=== PATIENT | male | born 1955 | race African-American/Black ===

== ENCOUNTER 2016-09-13 20:24 | Inpatient (IN) | payer BC, OTHER ==
--- NOTE | ~2016-09-13 | HP ---
History And Physical [id number] [place]. [address] NAME: SHANE BANERJEE : 53 STATUS : ADM IN [facility]#: [id number] AGE: 61 ADM/REG DATE : 09/14/16 MR#: [id number] REPORT SERV DATE: 09/14/16 DICTATED BY: NAA KUNZ DATE: 09/14/16 REPORT STATUS : Draft TRANSCRIBED BY: MODL DATE: 09/14/16 DATE OF ADMISSION: 09/14/2016 CHIEF COMPLAINT: Weakness. HISTORY OF PRESENT ILLNESS: The patient is a very pleasant, 61-year-old male with past history of colon cancer with liver and bone mets followed by Dr. Blake who presents after having decreased p.o. intake for multiple days, generalized weakness, and five episodes of falling and passing out episodes. The patient on arrival was noted to be hypotensive in the emergency room which caused dizziness episodes during or prior to the syncope episodes. The patient is caregiver for his but notes that he does feel different than usual. Symptoms are generalized weakness that are constant moderate to severe but no pain or radiating symptoms. No nausea or vomiting. No fever, diarrhea, chills, shortness of breath but the patient does have dizziness, weakness, decreased p.o. intake as the patient has lost taste for food. Symptoms are worsened with activity. No relieving symptoms appreciated. Symptoms are better particularly after getting IV fluids in emergency room. REVIEW OF SYSTEMS: CONSTITUTIONAL: Noted for multiple falls with dizziness and weakness. EYES: No visual changes or pain. ENT: No congestion or sore throat. NEURO: No headache or confusion but did have syncope. SKIN: No rashes or bruising. RESPIRATORY: No shortness of breath or cough. CV: No chest pain or palpitations. GI: No nausea or vomiting. : No dysuria or hematuria. MUSCULOSKELETAL: No myalgias or arthralgias. ENDOCRINE: No fatigue. HEME: No bleeding or bruising. IMMUNOLOGIC: No rhinorrhea. PSYCH: No anxiety or confusion. PAST MEDICAL HISTORY: Past medical history of hypertension, head injury with resultant seizures many years ago, reflux, colon cancer with subsequent metastasis to liver and bone under the care of Dr. Blake. SURGERIES: Venous access port and knee surgeries. SOCIAL HISTORY: Quit smoking in 2016. No current alcohol, no illicits. Lives with . ALLERGIES: NO KNOWN DRUG ALLERGIES. HOME MEDICATIONS: Flexeril, Voltaren, Nocatee, Keppra, lisinopril, HCTZ, omeprazole, Maxalt, Flomax, and chemotherapy. History And Physical [address] [address] NAME: SHANE BANERJEE : 53 STATUS : ADM IN [facility]#: [id number] AGE: 61 ADM/REG DATE : 09/14/16 MR#: [id number] REPORT SERV DATE: 09/14/16 DICTATED BY: NAA KUNZ DATE: 09/14/16 REPORT STATUS : Draft TRANSCRIBED BY: DIMITRI DATE: 09/14/16 PHYSICAL EXAMINATION: VITAL SIGNS: Blood pressure 89/68, repeated to 109/50, temperature 97.9, pulse 91, respirations 20, O2 saturations 91% on room air. GENERAL: Elderly than stated age. Slightly frail with temporal wasting but no acute distress. EYES: No scleral icterus. EOMI. ENT: Nares patent. Dry mucous membranes. RESPIRATORY: Clear to auscultation. No wheezes. CV: Regular rate. No rubs. Hypotensive. CHEST: Left-sided port. GI: Soft, nontender. : Deferred. MUSCULOSKELETAL: Does have mild muscle atrophy but moves all extremities x4. SKIN: Warm, dry. No tenting. LYMPH: No cervical or supraclavicular lymphadenopathy grossly. NEURO: Alert and oriented. Moves all extremities. PSYCH: Appropriate mood and affect, pleasant. DATA: Pelvis; unremarkable hip and pelvis no acute fracture. CT cervical; marked bullous changes bilateral lung apices, otherwise unremarkable CT cervical spine. No acute fracture or malalignment. Face without contrast, unremarkable CT facial bones, no acute facial bone fracture. Mild congenital leftward nasal septal deviation. Brain without contrast, moderate diffuse cerebral involutional changes. Otherwise unremarkable. CT head; no acute pathology. LABS: Sodium 132, potassium 5.2, chloride 98, carbon dioxide 21, BUN creatinine 82 and 2.55, glucose 84, calcium 8.8, magnesium 2.4, troponin negative. Chest pain profile; WBC 5.3, H and H 15.3 and 44.5, platelets 140, and INR 1.2. ASSESSMENT AND PLAN: 1. Syncope with hypotension. 2. Acute kidney injury. 3. Metastatic colon cancer. 4. Hypertension. 5. Seizure history. 6. Reflux. PLAN: 1. For syncope with current hypotension, responded to IV fluids. Discontinue blood History And Physical [address] [place]. [address] NAME: SHANE BANERJEE : 53 STATUS : ADM IN PAT#: [id number] AGE: 61 ADM/REG DATE : 09/14/16 MR#: [id number] REPORT SERV DATE: 09/14/16 DICTATED BY: NAA KUNZ DATE: 09/14/16 REPORT STATUS : Draft TRANSCRIBED BY: DIMITRI DATE: 09/14/16 pressure medications, is clinically volume depleted with decreased p.o. intake recently on chemo. IV hydration has provided response after first one liter. Monitor clinically. 2. JUSTEN. Stop NSAIDs, stop RADHA inhibitor HCTZ combination and as the patient is volume depleted secondary to recent chemo, we will check urine lytes, IV fluids. He has had urination x1 in the emergency room. We will monitor BMP, however, if the patient's I's and O's show decrease, may require Nephrology consult. 3. Metastatic colon cancer. CT scan has been completed on chemotherapy per Dr. Blake. We will notify of admission. 4. Hypertension, currently hypotensive. Stop HCTZ/RADHA inhibitor as possible additional nephrotoxins. 5. Seizure history, on medications, last seizure 1 year ago, on seizure precautions. 6. Reflux, PPI. We will monitor as an observation at this time until noted response to current treatment. DDN/MODL Naa Kunz MD / [id number] CC: MD Igor Uriarte M.D.
--- NOTE | ~2016-09-13 | DS ---
Discharge Summary [facility] [address] [place]. [address] NAME: SHANE BANERJEE : 53 STATUS : DIS IN PAT#: [id number] AGE: 61 ADM/REG DATE : 09/14/16 MR#: [id number] REPORT SERV DATE: 09/20/16 DICTATED BY: ADORE VILLALPANDO DATE: 09/19/16 REPORT STATUS : Draft TRANSCRIBED BY: MODL DATE: 09/19/16 ADMISSION DATE: 09/14/2016 DISCHARGE DATE: 09/19/2016 DISCHARGE DIAGNOSES: 1. Acute kidney injury, resolved. 2. Dehydration, resolved. 3. Diarrhea, improving, chemo induced. 4. Generalized weakness. 5. Metastatic colon cancer, treatment on hold at this time. 6. Hypokalemia, replaced. IMAGIN. CT of the brain, 09/13/2016 impression: Moderate diffuse cerebral changes. Otherwise unremarkable noncontrast CT. No acute intracranial pathology. 2. Chest x-ray, 09/13/2016 impression: Lungs clear suggesting underlying emphysematous changes. 3. CT face 09/13/2016 impression: Unremarkable CT of facial bones. No acute facial bone fracture. 4. CT of pelvis 09/13/2016 impression: Unremarkable CT of the hips and pelvis. No acute fracture. 5. CT of cervical, 09/13/2016 impression: Marked bullous changes bilateral lung aspects. Otherwise unremarkable CT cervical spine. No acute fracture or malalignment. COURSE OF HOSPITAL STAY: Please refer to history and physical dictated by Dr. Filemon Swann on 09/14/2016 for complete admission details. This patient is a 61-year-old male who presented to [facility] Emergency Room with complaints of increased weakness. He does present with a history of colon cancer with liver and bone metastasis followed by Dr. Blake of [facility]. The patient did present with complaints of increased generalized weakness and did state that he had decreased oral intake due to no appetite. The patient was admitted to the hospital for further treatment and evaluation. 1. Acute kidney injury. The patient was noted with a BUN and creatinine of 82 and 2.55 upon admission. IV hydration was provided. NSAIDs and RADHA inhibitor were held, p.o. intake was encouraged. At this time, BUN is 17, creatinine is 1.03, this has resolved. We will continue to encourage patient to take fluids in. The patient does state understanding. 2. Dehydration as noted above with lab work. The patient was encouraged to increase his p.o. intake. IV hydration was provided. Nutrition consult was also obtained during the patient's hospital stay. 3. Diarrhea. The patient did have complaints of loose watery stool. Stool studies were negative. The patient then was provided Imodium, and the diarrhea is believed to be chemo induced. 4. Generalized weakness. The patient did have complaints of generalized weakness following chemotherapy and unable to walk stating he was falling at home. PT Discharge Summary [address] [place]. [address] NAME: SHANE BANERJEE : 53 STATUS : DIS IN PAT#: [id number] AGE: 61 ADM/REG DATE : 09/14/16 MR#: [id number] REPORT SERV DATE: 09/20/16 DICTATED BY: ADORE VILLALPANDO DATE: 09/19/16 REPORT STATUS : Draft TRANSCRIBED BY: DIMITRI DATE: 09/19/16 evaluation was completed. The patient will be discharged to senior care facility to continue physical therapy. 5. Metastatic colon cancer. The patient is followed by Dr. Blake of [facility]. He will continue to follow with Dr. Blake upon discharge to a senior care facility. At this time, chemotherapy is on hold until the patient completes therapy. 6. Hypokalemia. The patient's potassium is 3.2, this will be replaced prior to patient's discharge from the hospital. DISCHARGE MEDICATIONS: 1. Keppra 500 mg one p.o. every 12 hours. 2. Prilosec 20 mg one p.o. daily. 3. Carafate 1 g p.o. before meals and at bedtime. 4. Flomax 0.4 mg one p.o. daily. 5. Tylenol 325 mg, 650 mg every 4 hours p.r.n. for pain. 6. Colace p.o. twice daily p.r.n. for constipation. 7. Imodium 2 mg p.o. every 6 hours p.r.n. for diarrhea. 8. Zofran 4 mg p.o. every four hours p.r.n. for nausea. 9. Senna 2 tabs p.o. at bedtime. 10.Flexeril 10 mg one p.o. three times daily p.r.n. for muscle spasms. 11.Voltaren 75 mg one p.o. twice daily p.r.n. for pain. 12.Maxalt 10 mg p.o. sublingual p.r.n. for migraine, maximum of 3 in 24 hours. 13.Chemotherapy per Oncology. This discharge took less than 30 minutes. TARA/DIMITRI Adore Villalpando NP / [id number] CC: MD Igor Uriarte M.D.
[~2016-09-13 20:24] MED LIST: FLEX PO; KEPPRA500 PO; MAXALT10 MG PO; PRILO PO; PRINZIDE1 TAB PO; VOLT75 PO
[2016-09-13] MEDS ORDERED: FLEX PO (21:54)
[2016-09-13] MEDS ORDERED: PRINZIDE1 TAB PO (21:54)
[2016-09-13] MEDS ORDERED: FLOMAX4 PO (21:55)
[2016-09-13] MEDS ORDERED: NORCO1 TA1 PO (21:56)
[2016-09-13] MEDS ORDERED: KEPPRA500 PO (21:57)
[2016-09-13] MEDS ORDERED: PRILO PO (21:57)
[2016-09-13] MEDS ORDERED: VOLT75 PO (21:57)
[2016-09-13] MEDS ORDERED: MAXALTODT1 PO/SL (21:58)
[2016-09-13] MEDS ORDERED: [UNRECOGNIZED DRUG - OTHER] PO (21:58)
[2016-09-13] MEDS ORDERED: CHEMOTHERAPY IV (22:00)
[2016-09-13 22:18] LABS: BASOPHILS 0.2 %; BASOPHILS ABSOLUTE 0.01 10/3/uL (0.0-0.16); EOSINOPHILS 0.4 %; EOSINOPHILS ABSOLUTE 0.02 10/3/uL (0.0-0.53); ER CBC TAT 0 Hrs 11 Mins; IMMATURE GRANULOCYTES 0.2 %; IMMATURE GRANULOCYTES ABSOLUTE 0.01 10/3/uL (0.0-0.11); LYMPHOCYTES 45.4 %; LYMPHOCYTES ABSOLUTE 2.39 10/3/uL (0.67-4.30); MEAN CORPUS HGB CONC 34.4 g/dL (32.0-36.0); MEAN CORPUSCULAR HEMOGLOB 29.6 pg (26.0-34.0); MONOCYTES 10.1 %; MONOCYTES ABSOLUTE 0.53 10/3/uL (0.21-1.20); NEUTROPHILS 43.7 %; NUCLEATED RED BLOOD CELLS 0.7 /100WBC (0-0); RBC DISTRIBUTION WIDTH 16.8 % (12.0-16.0); WHITE BLOOD CELLS 5.3 10/3/uL (4.5-10.5)
[2016-09-13 22:20] LABS: HEMATOCRIT 44.5 % (40.0-51.0); HEMOGLOBIN 15.3 g/dL (13.6-17.8); MEAN CORPUSCULAR VOLUME 86.1 fL (80-100); RED CELL COUNT 5.17 10/6/uL (4.7-6.1)
[2016-09-13 22:21] LABS: MANUAL DIFF NO %; PLATELET COUNT 140 10/3/uL (150-400)
[2016-09-13 22:25] LABS: INTERNATIONAL NORMAL RATI 1.2 UNITS (-); PARTIAL THROMBO TIME 23.6 SEC (22.5-37.2)
[2016-09-13 22:33] LABS: CALCIUM, SERUM 8.8 MG/DL (8.5-10.4); CHEST PAIN PROFILE TAT 0 Hrs 26 Mins; CHLORIDE, SERUM 98 MMOL/L (96-112); SODIUM, SERUM 132 MMOL/L (135-148); TROPONIN I 0.02 NG/ML (<0.05)
[2016-09-13 22:34] LABS: BUN (BLOOD UREA NITROGEN) 82 MG/DL (6-23); CO2 (CARBON DIOXIDE) 21 MMOL/L (24-34); CREATININE 2.55 MG/DL (0.70-1.30); GFR AFRICAN AMERICAN 30 ML/MIN (>=60); GFR NON AFRICAN AMERICAN 26 ML/MIN (>=60); GLUCOSE, SERUM 84 MG/DL (60-99); POTASSIUM, SERUM 5.2 MMOL/L (3.5-5.3)
[2016-09-14 02:42] LABS: ASCORBIC ACID (UR NOT ORDER) NEG (NEG); BILIRUBIN, URINE NEGATIVE (NEG); KETONE, URINE TRACE MG/DL (NEG); LEUKOCYTE ESTERASE(NOT OR NEG (NEG); NITRITE (URINE) NEG (NEG); WBC (NOT ORDERED) (RFLEX) 1 (0-5)
[2016-09-14 09:48] LABS: BASOPHILS 0 %; EOSINOPHILS 1.4 %; EOSINOPHILS ABSOLUTE 0.03 10/3/uL (0.0-0.53); HEMATOCRIT 38.6 % (40.0-51.0); HEMOGLOBIN 13.4 g/dL (13.6-17.8); LYMPHOCYTES 37.2 %; LYMPHOCYTES ABSOLUTE 0.81 10/3/uL (0.67-4.30); MANUAL DIFF NO %; MEAN CORPUS HGB CONC 34.7 g/dL (32.0-36.0); MEAN CORPUSCULAR HEMOGLOB 29.9 pg (26.0-34.0); MEAN CORPUSCULAR VOLUME 86.2 fL (80-100); MEAN PLATELET VOLUME 9.9 fL (9.2-13.0); MONOCYTES 11.9 %; MONOCYTES ABSOLUTE 0.26 10/3/uL (0.21-1.20); NEUTROPHILS 49.5 %; NEUTROPHILS ABSOLUTE 1.08 10/3/uL (2.02-8.40); PLATELET COUNT 118 10/3/uL (150-400); RBC DISTRIBUTION WIDTH 16.8 % (12.0-16.0); RED CELL COUNT 4.48 10/6/uL (4.7-6.1); WHITE BLOOD CELLS 2.2 10/3/uL (4.5-10.5)
[2016-09-14 10:04] LABS: A/G RATIO 0.9 (0.7-1.9); ALBUMIN 2.8 G/DL (3.5-5.0); ALKALINE PHOSPHATASE 79 U/L (45-117); BUN (BLOOD UREA NITROGEN) 65 MG/DL (6-23); CALCIUM, SERUM 7.7 MG/DL (8.5-10.4); CHLORIDE, SERUM 105 MMOL/L (96-112); CO2 (CARBON DIOXIDE) 20 MMOL/L (24-34); CREATININE 1.55 MG/DL (0.70-1.30); GFR AFRICAN AMERICAN 55 ML/MIN (>=60); GFR NON AFRICAN AMERICAN 47 ML/MIN (>=60); GLOBULIN 3.2 G/DL (2.5-4.1); GLUCOSE, SERUM 82 MG/DL (60-99); PHOSPHORUS, SERUM 2.2 MG/DL (2.5-4.5); POTASSIUM, SERUM 4.1 MMOL/L (3.5-5.3); SGOT(AST) 15 U/L (5-40); SGPT(ALT) 15 U/L (5-65); SODIUM, SERUM 137 MMOL/L (135-148); TOTAL BILIRUBIN 0.8 MG/DL (0-1.2); TROPONIN I 0.03 NG/ML (<0.05)
[2016-09-15 05:15] LABS: BASOPHILS 0.4 %; BASOPHILS ABSOLUTE 0.01 10/3/uL (0.0-0.16); EOSINOPHILS 0.8 %; EOSINOPHILS ABSOLUTE 0.02 10/3/uL (0.0-0.53); HEMATOCRIT 37.7 % (40.0-51.0); LYMPHOCYTES 39.9 %; LYMPHOCYTES ABSOLUTE 1.05 10/3/uL (0.67-4.30); MEAN CORPUS HGB CONC 34.5 g/dL (32.0-36.0); MEAN CORPUSCULAR HEMOGLOB 29.6 pg (26.0-34.0); MEAN CORPUSCULAR VOLUME 85.9 fL (80-100); MEAN PLATELET VOLUME 10.3 fL (9.2-13.0); MONOCYTES 14.1 %; MONOCYTES ABSOLUTE 0.37 10/3/uL (0.21-1.20); NEUTROPHILS 44.8 %; NEUTROPHILS ABSOLUTE 1.18 10/3/uL (2.02-8.40); PLATELET COUNT 120 10/3/uL (150-400); RBC DISTRIBUTION WIDTH 16.7 % (12.0-16.0); RED CELL COUNT 4.39 10/6/uL (4.7-6.1); WHITE BLOOD CELLS 2.6 10/3/uL (4.5-10.5)
[2016-09-15 05:19] LABS: MANUAL DIFF NO %
[2016-09-15 05:33] LABS: BUN (BLOOD UREA NITROGEN) 40 MG/DL (6-23); CALCIUM, SERUM 7.5 MG/DL (8.5-10.4); CHLORIDE, SERUM 108 MMOL/L (96-112); CO2 (CARBON DIOXIDE) 18 MMOL/L (24-34); CREATININE 1.21 MG/DL (0.70-1.30); GFR AFRICAN AMERICAN 74 ML/MIN (>=60); GFR NON AFRICAN AMERICAN 64 ML/MIN (>=60); GLUCOSE, SERUM 86 MG/DL (60-99); POTASSIUM, SERUM 3.6 MMOL/L (3.5-5.3); SODIUM, SERUM 140 MMOL/L (135-148)
[2016-09-16 06:20] LABS: HEMATOCRIT 37.8 % (40.0-51.0); MEAN CORPUS HGB CONC 34.4 g/dL (32.0-36.0); MEAN CORPUSCULAR HEMOGLOB 29.7 pg (26.0-34.0); MEAN CORPUSCULAR VOLUME 86.3 fL (80-100); MEAN PLATELET VOLUME 9.9 fL (9.2-13.0); PLATELET COUNT 134 10/3/uL (150-400); RBC DISTRIBUTION WIDTH 17.2 % (12.0-16.0); RED CELL COUNT 4.38 10/6/uL (4.7-6.1)
[2016-09-16 06:24] LABS: MANUAL DIFF YES %; WHITE BLOOD CELLS 3.9 10/3/uL (4.5-10.5)
[2016-09-16 06:31] LABS: BUN (BLOOD UREA NITROGEN) 34 MG/DL (6-23); CALCIUM, SERUM 8.4 MG/DL (8.5-10.4); CHLORIDE, SERUM 116 MMOL/L (96-112); CO2 (CARBON DIOXIDE) 15 MMOL/L (24-34); CREATININE 1.62 MG/DL (0.70-1.30); GFR AFRICAN AMERICAN 52 ML/MIN (>=60); GFR NON AFRICAN AMERICAN 45 ML/MIN (>=60); GLUCOSE, SERUM 108 MG/DL (60-99); POTASSIUM, SERUM 3.4 MMOL/L (3.5-5.3); SODIUM, SERUM 144 MMOL/L (135-148)
[2016-09-16 07:18] LABS: ANISOCYTOSIS 1+ (5-10/OIF) (0-5/OIF); BAND NEUTROPHILS 31 %; LYMPHOCYTES 39 %; LYMPHOCYTES ABSOLUTE (CALC) 1.52 10/3/uL (0.67-4.30); MONOCYTES 18 %; NEUTROPHILS ABSOLUTE (CALC) 1.68 10/3/uL (2.02-8.40); PLATELET ESTIMATE SLT DEC (ADEQUATE); SEGMENTED NEUTROPHIL (0) 12 %; TOTAL NUCLEATED CELLS 100
[2016-09-17 04:14] LABS: HEMATOCRIT 36.1 % (40.0-51.0); HEMOGLOBIN 12.9 g/dL (13.6-17.8); MEAN CORPUS HGB CONC 35.7 g/dL (32.0-36.0); MEAN CORPUSCULAR HEMOGLOB 30.1 pg (26.0-34.0); MEAN CORPUSCULAR VOLUME 84.1 fL (80-100); MEAN PLATELET VOLUME 9.4 fL (9.2-13.0); NUCLEATED RED BLOOD CELLS 1.5 /100WBC (0-0); PLATELET COUNT 134 10/3/uL (150-400); RBC DISTRIBUTION WIDTH 17.2 % (12.0-16.0); RED CELL COUNT 4.29 10/6/uL (4.7-6.1)
[2016-09-17 04:15] LABS: MANUAL DIFF YES %; WHITE BLOOD CELLS 5.5 10/3/uL (4.5-10.5)
[2016-09-17 04:20] LABS: CALCIUM, SERUM 7.6 MG/DL (8.5-10.4); CREATININE 1.34 MG/DL (0.70-1.30); GFR AFRICAN AMERICAN 65 ML/MIN (>=60); GFR NON AFRICAN AMERICAN 56 ML/MIN (>=60); POTASSIUM, SERUM 3.2 MMOL/L (3.5-5.3); SODIUM, SERUM 139 MMOL/L (135-148)
[2016-09-17 04:22] LABS: BUN (BLOOD UREA NITROGEN) 29 MG/DL (6-23); CHLORIDE, SERUM 104 MMOL/L (96-112); CO2 (CARBON DIOXIDE) 25 MMOL/L (24-34); GLUCOSE, SERUM 76 MG/DL (60-99)
[2016-09-17 05:05] LABS: SEGMENTED NEUTROPHIL (0) 22 %; TOTAL NUCLEATED CELLS 100
[2016-09-17 05:06] LABS: BAND NEUTROPHILS 14 %; EOSINOPHILS 1 %; EOSINOPHILS ABSOLUTE (CALC) 0.06 10/3/uL (0.0-0.53); IMMATURE GRANS ABSOLUTE (CALC) 0.11 10/3/uL (0.0-0.11); LYMPHOCYTES 55 %; LYMPHOCYTES ABSOLUTE (CALC) 3.03 10/3/uL (0.67-4.30); METAMYELOCYTES 2 %; MONOCYTES 6 %; MONOCYTES ABSOLUTE (CALC) 0.33 10/3/uL (0.21-1.20); NEUTROPHILS ABSOLUTE (CALC) 1.98 10/3/uL (2.02-8.40); PLATELET ESTIMATE SLT DEC (ADEQUATE)
[2016-09-17 05:07] LABS: RBC MORPHOLOGY NORM (NORMAL)
[2016-09-18 05:29] LABS: BUN (BLOOD UREA NITROGEN) 21 MG/DL (6-23); CALCIUM, SERUM 7.6 MG/DL (8.5-10.4); CHLORIDE, SERUM 99 MMOL/L (96-112); CO2 (CARBON DIOXIDE) 28 MMOL/L (24-34); CREATININE 1.14 MG/DL (0.70-1.30); GFR AFRICAN AMERICAN 79 ML/MIN (>=60); GFR NON AFRICAN AMERICAN 69 ML/MIN (>=60); GLUCOSE, SERUM 79 MG/DL (60-99); HEMATOCRIT 35.3 % (40.0-51.0); HEMOGLOBIN 12.3 g/dL (13.6-17.8); MEAN CORPUS HGB CONC 34.8 g/dL (32.0-36.0); MEAN CORPUSCULAR HEMOGLOB 29.5 pg (26.0-34.0); MEAN CORPUSCULAR VOLUME 84.7 fL (80-100); MEAN PLATELET VOLUME 9.8 fL (9.2-13.0); PLATELET COUNT 133 10/3/uL (150-400); POTASSIUM, SERUM 3.1 MMOL/L (3.5-5.3); RBC DISTRIBUTION WIDTH 17.3 % (12.0-16.0); RED CELL COUNT 4.17 10/6/uL (4.7-6.1); SODIUM, SERUM 137 MMOL/L (135-148); WHITE BLOOD CELLS 5.5 10/3/uL (4.5-10.5)
[2016-09-18 05:30] LABS: MANUAL DIFF YES %
[2016-09-18 06:03] LABS: ANISOCYTOSIS 1+ (5-10/OIF) (0-5/OIF); BAND NEUTROPHILS 10 %; EOSINOPHILS 1 %; EOSINOPHILS ABSOLUTE (CALC) 0.06 10/3/uL (0.0-0.53); LYMPHOCYTES 58 %; LYMPHOCYTES ABSOLUTE (CALC) 3.19 10/3/uL (0.67-4.30); MONOCYTES 12 %; MONOCYTES ABSOLUTE (CALC) 0.66 10/3/uL (0.21-1.20); PLATELET ESTIMATE SLT DEC (ADEQUATE); SEGMENTED NEUTROPHIL (0) 19 %; TOTAL NUCLEATED CELLS 100
[2016-09-19 04:50] LABS: BUN (BLOOD UREA NITROGEN) 17 MG/DL (6-23); CALCIUM, SERUM 7.4 MG/DL (8.5-10.4); CHLORIDE, SERUM 103 MMOL/L (96-112); CO2 (CARBON DIOXIDE) 27 MMOL/L (24-34); CREATININE 1.03 MG/DL (0.70-1.30); GFR AFRICAN AMERICAN 90 ML/MIN (>=60); GFR NON AFRICAN AMERICAN 77 ML/MIN (>=60); GLUCOSE, SERUM 82 MG/DL (60-99); POTASSIUM, SERUM 3.2 MMOL/L (3.5-5.3); SODIUM, SERUM 141 MMOL/L (135-148)
== END 2016-09-19 15:30 | DRG 917 ==
LOC: ER 20:24 → 4EA 09-14 01:23
PROVIDERS: Emergency Medicine; Internal Medicine; Internal Medicine Hematology & Oncology; Nurse Practitioner Adult Health; Student in an Organized Health Care Education/Training Program
DX: T45.1X5A Adverse effect of antineoplastic and immunosuppressive drugs, initial encounter (principal); E43 Unspecified severe protein-calorie malnutrition; N17.9 Acute kidney failure, unspecified; C18.9 Malignant neoplasm of colon, unspecified; E86.0 Dehydration; I10 Essential (primary) hypertension; Z68.1 Body mass index [BMI] 19.9 or less, adult; K21.9 Gastro-esophageal reflux disease without esophagitis; E87.6 Hypokalemia
CPT/HCPCS: 70450; 70486; 71010; 72125; 72192; 80048; 80053; 80069; 81001; 82570; 83735; 83935; 84132; 84145; 84300; 84484; 85025; 85610; 85730; 87040; 87045; 87046; 87046-59; 87328; 87329; 87493; 87493-59; 87899; 87899-59; 96360; 97161-GP; 99285; A9270-GY; J2405